=== PATIENT | male | born 1985 | race Caucasian/White ===

== ENCOUNTER 2023-03-12 16:04 | Outpatient (CLI) | payer OTHER | END 2023-03-12 23:59 | disposition critical access hospital (66) | LOC: EMS 16:04 | DX: R56.9 Unspecified convulsions (principal) | CPT/HCPCS: A0425; A0429 ==

== ENCOUNTER 2023-03-12 16:44 | Emergency (ER) | payer OTHER ==
--- NOTE | 2023-03-12 16:51 | ED Physician Documentation ---
History of Present Illness - Stated complaint Stated Complaint: SEIZURE - History obtained from History obtained from: Patient, EMS - Additonal information Additional information: 37-year-old gentleman who has trouble with alcohol abuse has not been drinking today as he was with family. He had a seizure which she is never had before. He has a bite on the tongue. Seizure was tonic-clonic and lasted about a minute with postictal period. Only complaint now is a swollen painful tongue. Was not incontinent. PD PAST MEDICAL HISTORY - Present Medications Home Medications: Ambulatory Orders Medication Instructions Recorded Confirmed LORazepam [Ativan] 1 mg PO TID #12 tablet 03/12/23 - Allergies Allergies/Adverse Reactions: Allergies Allergy/AdvReac Type Severity Reaction Status Date / Time No Known Drug Allergies Allergy Verified 03/12/23 16:58 PD ED PE NORMAL - Vitals Vital signs reviewed: Yes - General General: Alert and oriented X 3, No acute distress - HEENT HEENT: Other (Significant bruising and swelling of the left side of the tongue) - Neck Neck: Supple, no meningeal sign, No bony TTP - Cardiac Cardiac: RRR, No murmur - Respiratory Respiratory: No respiratory distress, Clear bilaterally - Abdomen Abdomen: Non tender - Neuro Neuro: Alert and oriented X 3, resort keeper 2-12 intact Eye Opening: Spontaneous Motor: Obeys Commands Verbal: Oriented GCS Score: 15 - Psych Psych: Normal mood, Normal affect Results - Vitals Vitals: Vital Signs - 24 hr 03/12/23 16:48 Heart Rate 104 H Respiratory 12 Rate Blood Pressure 158/97 H O2 Saturation 97 Oxygen O2 Source Room air - EKG (time done) 1717 EKG releavant findings:: EKG personally interpreted by author of this note. Relevant findings are: Rate: Rate (enter#) (93) Rhythm: NSR, LAE [place]ak[place]: Normal Intervals: Normal CO Ischemia: Normal ST segments - Labs Labs: Laboratory Tests 03/12/23 03/12/23 16:57 16:57 WBC 4.4 L RBC 4.36 L Hgb 13.9 L Hct 40.3 L MCV 92.4 MCH 31.9 H MCHC 34.5 RDW 11.5 L Plt Count 163 MPV 9.3 Neut # (Auto) 3.0 Lymph # (Auto) 0.5 L [place] # (Auto) 0.7 Eos # (Auto) 0.1 Baso # (Auto) 0.1 Absolute Nucleated RBC 0.00 Nucleated RBC % 0.0 Sodium 132 L Potassium 3.7 Chloride 98 L Carbon Dioxide 23 Anion Gap 11.0 BUN 7 Creatinine 0.8 Estimated GFR (MDRD) 108 Glucose 121 H Calcium 9.4 Total Bilirubin 1.8 H AST 179 H ALT 146 H Alkaline Phosphatase 70 Total Protein 8.0 Albumin 4.1 Globulin 3.9 Albumin/Globulin Ratio 1.1 Ethyl Alcohol < 5.0 - Rads (name of study) CT of the head is unremarkable Relevant Findings:: Final report received, EMP independent interpretation of test PD Medical Decision Making - ED course ED course: Labs reviewed with mild pancytopenia and elevated liver enzymes consistent with alcohol abuse. No alcohol on board now. Patient here with seizure, likely alcohol withdrawal related. CT head normal. No seizure activity in the department. Departure - Departure Disposition: Home, Self Care Clinical Impression: Seizure Condition: Good Record reviewed to determine appropriate education?: Yes Instructions: ED Seizure Alcohol Withdrawal Prescriptions: LORazepam [Ativan] 1 mg PO TID #12 tablet Comments: You are seen today for a seizure which is likely related to alcohol withdrawal. There is evidence of mild liver damage from your drinking which should reverse should you quit drinking. Recommend you consider inpatient detox closer to home. Do not drink or drive today. I am writing a prescription for Ativan (not you prescribed since you are visiting from out of the area) which will help with alcohol withdrawal related symptoms.
[2023-03-12] MEDS: LORazepam 2 MG/ML VIAL IVP STA (17:03)
[2023-03-12 17:05] LABS: BASOPHILS # (AUTO) 0.1 10^3/uL (0.0-0.1); BASOPHILS % (AUTO) 2.7 %; EOSINOPHILS # (AUTO) 0.1 10^3/uL (0.0-0.7); EOSINOPHILS % (AUTO) 1.4 %; HCT - HEMATOCRIT 40.3 % (42.0-52.0); HGB - HEMOGLOBIN 13.9 g/dL (14.0-18.0); LYMPHOCYTES # (AUTO) 0.5 10^3/uL (1.5-3.5); LYMPHOCYTES % (AUTO) 11.4 %; MEAN CORPUSCULAR HEMOGLOBIN 31.9 pg (27.0-31.0); MEAN CORPUSCULAR HGB CONC 34.5 g/dL (32.0-36.0); MEAN CORPUSCULAR VOLUME 92.4 fL (80.0-94.0); MEAN PLATELET VOLUME 9.3 fL (7.4-11.4); MONOCYTES # (AUTO) 0.7 10^3/uL (0.0-1.0); MONOCYTES % (AUTO) 15.5 %; NEUTROPHILS % (AUTO) 68.5 %; PLT - PLATELET COUNT 163 10^3/uL (130-450); RED BLOOD COUNT 4.36 10^6/uL (4.70-6.10); RED CELL DISTRIBUTION WIDTH 11.5 % (12.0-15.0); WHITE BLOOD COUNT 4.4 x10^3/uL (4.8-10.8)
[2023-03-12 17:10] VITALS: BP 158/97
[2023-03-12 17:13] LABS: ALBUMIN 4.1 g/dL (3.2-5.5); ALBUMIN/GLOBULIN RATIO 1.1 (1.0-2.2); ALKALINE PHOSPHATASE 70 IU/L (42-121); ALT ALANINE AMINOTRANSFERASE 146 IU/L (10-60); AST ASPARTATE AMINOTRANSFERASE 179 IU/L (10-42); BILIRUBIN,TOTAL 1.8 mg/dL (0.2-1.0); BUN - BLOOD UREA NITROGEN 7 mg/dL (6-20); CALCIUM 9.4 mg/dL (8.5-10.3); CARBON DIOXIDE - CO2 23 mmol/L (21-32); CHLORIDE 98 mmol/L (101-111); CREATININE 0.8 mg/dL (0.6-1.2); ETOH - ETHANOL < 5.0 mg/dL; GFR - MDRD 108 (>89); GLUCOSE 121 mg/dL (70-100); POTASSIUM 3.7 mmol/L (3.5-5.0); SODIUM 132 mmol/L (135-145)
--- NOTE | 2023-03-12 17:27 | CT Report ---
PROCEDURE: HEAD WO INDICATIONS: seizure TECHNIQUE: Noncontrast 4.5 mm thick angled axial sections acquired from the foramen magnum to the vertex. For r adiation dose reduction, the following was used: automated exposure control, adjustment of mA and/or kV according to patient size. COMPARISON: None. FINDINGS: Image quality: Excellent. CSF spaces: Basal cisterns are patent. No extra-axial fluid collections. Ventricles are normal in size and shape. Brain: No midline shift. No intracranial masses or hemorrhage. Joseph-white matter interface is norm al. Skull and face: Calvarium and visualized facial bones are intact, without suspicious lesions. Sinuses: Visualized sinuses and mastoids are clear. IMPRESSION: No acute cranial abnormality. No significant mass effect or source of seizure identified. Consider fo llow-up MRI of the brain if there is continued clinical concern. Reviewed by: Christophe Washington MD on 03/12/2023 5:25 PM PDT Approved by: Christophe Washington MD on 03/12/2023 5:25 PM PDT Station ID: [id number]
== END 2023-03-12 17:44 | disposition home or self-care (01) ==
LOC: ED 16:44
DX: R56.9 Unspecified convulsions (principal); R74.01 Elevation of levels of liver transaminase levels; D61.818 Other pancytopenia
CPT/HCPCS: 36415; 70450; 80053; 80320; 85025; 93005; 96374; 99283; 99284; J2060